=== PATIENT | male | born 1995 | race Caucasian/White ===

== ENCOUNTER 2022-05-03 23:43 | Emergency (ER) | payer OTHER ==
[~2022-05-03 23:43] MED LIST: AMOXICILLIN875 MG PO; ASPIR 8181 MG PO; BENTYL 20MG TAB20 MG PO; CLARITIN10 M2 PO; FUROSEMIDE40 MG PO; LASIX 40 MG TAB40 MG PO; LASIX20 MG PO; MONTELUKAST SOD10 MG PO; PANTOPRAZOLE SO40 MG PO; SOTALOL120 MG PO; VENLAFAXINE H37.5 M1 PO; VITAMIN D325 MCG PO; ZOFRAN4 MG PO
[2022-05-04] MEDS ORDERED: EPIPEN 2-P0.3 MG/0.3 INJ (02:31)
== END 2022-05-04 03:02 | disposition home or self-care (01) ==
LOC: ER1 23:43
DX: L50.0 Allergic urticaria (principal)
CPT/HCPCS: 96372; 96374; 96375; 99282; J0171; J1200; J2930